=== PATIENT | male | born 1945 | race Two or more races ===

== ENCOUNTER 2019-11-18 15:05 | Outpatient (CLI) | payer OTHER | END 2019-11-18 18:00 | disposition home or self-care (01) | LOC: LAB 15:05 | PROVIDERS: ATTEND Urology | DX: R97.20 Elevated prostate specific antigen [PSA] (principal) ==

== ENCOUNTER 2019-11-29 07:36 | Outpatient (CLI) | payer OTHER | END 2019-11-29 07:46 | disposition home or self-care (01) | LOC: SONOGRAMA 07:36 | PROVIDERS: ATTEND Urology | DX: R97.20 Elevated prostate specific antigen [PSA] (principal) ==

== ENCOUNTER 2019-12-11 06:24 | Outpatient (CLI) | payer OTHER | END 2019-12-11 08:45 | disposition home or self-care (01) | LOC: TOM 06:24 | PROVIDERS: ATTEND Urology | DX: C61 Malignant neoplasm of prostate (principal); R97.20 Elevated prostate specific antigen [PSA] ==

== ENCOUNTER 2019-12-11 08:25 | Outpatient (CLI) | payer OTHER | END 2019-12-11 08:30 | disposition home or self-care (01) | LOC: NUCLEAR 08:25 | PROVIDERS: ATTEND Urology | DX: C61 Malignant neoplasm of prostate (principal); R97.20 Elevated prostate specific antigen [PSA] | CPT/HCPCS: 78803; A9503 ==

== ENCOUNTER → 2020-01-15 | Outpatient (CLI) | payer OTHER | END | disposition home or self-care (01) | LOC: RAD 12:12 | PROVIDERS: ATTEND Urology | DX: C61 Malignant neoplasm of prostate (principal) ==

== ENCOUNTER 2020-01-20 16:01 | Inpatient (IN) | payer OTHER ==
[~2020-01-20] VITALS: Ht 177.8 cm; Wt 84.4 kg
[2020-01-22] MEDS ORDERED: OMEPRA PO (10:22)
[2020-01-22] MEDS ORDERED: LOSARTAN-HCTZ1 EAC2 PO (10:22)
[2020-01-22] MEDS ORDERED: DILTIAZEM 24HR180 MG PO (10:23)
[2020-01-29] MEDS ORDERED: ADVIL200 M1 (07:49)
[2020-01-29] MEDS ORDERED: ADULT ASPIRIN R81 MG (07:49)
[2020-01-29] MEDS ORDERED: CALTRATE 600+D1 EAC1 (07:50)
[2020-01-29] MEDS ORDERED: FERROUS SULFAT325 MG (07:50)
[2020-01-29] MEDS ORDERED: OPTIVE EYE DROP15 ML (07:50)
[2020-01-29] MEDS ORDERED: ALEVE220 MG (07:50)
[2020-01-29] MEDS ORDERED: CENTRUM SILVER1 EAC2 (07:50)
[2020-01-29] MEDS ORDERED: VITAMIN D3125 MC2 (07:51)
[2020-01-29] MEDS ORDERED: PANADOL EXTRA500 MG (07:51)
[2020-01-29] MEDS ORDERED: MIRALAX510 GM (07:51)
[2020-01-29] MEDS ORDERED: TRIPLE ANTIBIOT14 GM (07:51)
[2020-01-29] MEDS ORDERED: OMEPRAZOLE40 MG (07:51)
[2020-01-29] MEDS ORDERED: [UNRECOGNIZED DRUG - OTHER] (07:51)
[2020-01-29] MEDS ORDERED: LUBRICANT EYE1 EACH (07:51)
[2020-01-29] MEDS ORDERED: OMEGA 3-6-9 CO400 MG (07:52)
[2020-01-29] MEDS ORDERED: GAVILYTE-C SO4000 ML (07:53)
== END 2020-01-31 12:38 | disposition home or self-care (01) | DRG 708 ==
LOC: SURG 01-29 05:45 → O/R 01-29 05:45 → SURH 01-29 07:00 → EDBD 01-29 09:15 → SURG 01-29 13:58
PROVIDERS: ADMIT Urology; ATTEND Urology
PROC: 0VT00ZZ Resection of Prostate, Open Approach (ICD-10-PCS; 2020-01-29)
PROC: 0VT30ZZ Resection of Bilateral Seminal Vesicles, Open Approach (ICD-10-PCS; 2020-01-29)
PROC: 07TC0ZZ Resection of Pelvis Lymphatic, Open Approach (ICD-10-PCS; principal; 2020-01-29 07:00)
DX: C61 Malignant neoplasm of prostate (principal); R59.0 Localized enlarged lymph nodes; I11.9 Hypertensive heart disease without heart failure

== ENCOUNTER 2020-05-05 10:00 | Outpatient (CLI) | payer OTHER ==
[~2020-05-05 10:00] MED LIST: ADULT ASPIRIN R81 MG; ADVIL200 M1; ALEVE220 MG; CALTRATE 600+D1 EAC1; CENTRUM SILVER1 EAC2; DILTIAZEM 24HR180 MG PO; FERROUS SULFAT325 MG; GAVILYTE-C SO4000 ML; LOSARTAN-HCTZ1 EAC2 PO; LUBRICANT EYE1 EACH; MIRALAX510 GM; OMEGA 3-6-9 CO400 MG; OMEPRA PO; OMEPRAZOLE40 MG; OPTIVE EYE DROP15 ML; PANADOL EXTRA500 MG; TRIPLE ANTIBIOT14 GM; VITAMIN D3125 MC2; [UNRECOGNIZED DRUG - OTHER]
== END 2020-05-05 11:11 | disposition home or self-care (01) ==
LOC: PPH VACUNA 10:00
PROVIDERS: ATTEND Emergency Medicine Pediatric Emergency Medicine
DX: Z23 Encounter for immunization (principal)

== ENCOUNTER → 2020-05-26 07:00 | Outpatient (CLI) | payer OTHER | END | disposition home or self-care (01) | LOC: PPH VACUNA 07:00 | PROVIDERS: ATTEND Emergency Medicine Pediatric Emergency Medicine | DX: Z23 Encounter for immunization (principal) ==

== ENCOUNTER 2022-07-22 06:23 | Outpatient (CLI) | payer OTHER | END 2022-07-22 07:00 | disposition home or self-care (01) | LOC: SONOGRAMA 06:23 | PROVIDERS: ATTEND Internal Medicine Nephrology | DX: N18.30 Chronic kidney disease, stage 3 unspecified (principal) ==

== ENCOUNTER → 2022-10-03 10:40 | Outpatient (CLI) | payer OTHER | END | disposition home or self-care (01) | LOC: LAB 10:40 | PROVIDERS: ATTEND Urology | DX: C61 Malignant neoplasm of prostate (principal); I11.9 Hypertensive heart disease without heart failure ==

== ENCOUNTER 2022-10-12 05:30 | Day surgery (SDC) | payer OTHER | END 2022-10-12 13:10 | disposition home or self-care (01) | LOC: CIR.AMB 05:30 | PROVIDERS: ATTEND Urology | DX: N32.0 Bladder-neck obstruction (principal); N32.89 Other specified disorders of bladder; Z20.822 Contact with and (suspected) exposure to COVID-19 ==

== ENCOUNTER 2024-04-19 07:37 | Outpatient (CLI) | payer OTHER | END 2024-04-19 13:29 | disposition home or self-care (01) | LOC: MRI 07:37 | PROVIDERS: ATTEND Orthopaedic Surgery | DX: M54.50 Low back pain, unspecified (principal) | CPT/HCPCS: 72148 ==

== ENCOUNTER 2024-09-04 12:55 | Outpatient (CLI) | payer OTHER | END 2024-09-13 16:47 | disposition home or self-care (01) | LOC: RAD 12:55 | PROVIDERS: ATTEND Orthopaedic Surgery Orthopaedic Surgery of the Spine | DX: M43.16 Spondylolisthesis, lumbar region (principal) ==

== ENCOUNTER 2025-03-27 08:13 | Outpatient (CLI) | payer OTHER | END 2025-03-27 08:24 | disposition home or self-care (01) | LOC: RAD 08:13 | PROVIDERS: ATTEND Internal Medicine Geriatric Medicine | DX: I11.9 Hypertensive heart disease without heart failure (principal); R06.02 Shortness of breath ==

== ENCOUNTER 2025-03-27 08:55 | Outpatient (CLI) | payer OTHER | END 2025-03-27 08:58 | disposition home or self-care (01) | LOC: NUCLEAR 08:55 | PROVIDERS: ATTEND Internal Medicine Geriatric Medicine | DX: I11.9 Hypertensive heart disease without heart failure (principal) ==